=== PATIENT | female | born 1945 | race Caucasian/White ===

== ENCOUNTER 2016-11-20 08:43 | Outpatient (CLI) | payer MEDICARE, OTHER | END 2016-11-20 08:44 | disposition critical access hospital (66) | LOC: EMS 08:43 | PROVIDERS: ATTEND Surgery | DX: M25.552 Pain in left hip (principal); W11.XXXA Fall on and from ladder, initial encounter; Y92.89 Other specified places as the place of occurrence of the external cause | CPT/HCPCS: A0425; A0429 ==

== ENCOUNTER 2016-11-20 09:02 | Emergency (ER) | payer MEDICARE, OTHER ==
[2016-11-20] MEDS ORDERED: ACETAMINOPHEN 1,000 MG/100 ML 100 ML IV STA (09:39)
[2016-11-20] MEDS ORDERED: oxyCOD/ACETAMIN 5 MG/325 MG TABLET PO STA ×2 (09:39→12:53)
[2016-11-20] MEDS ORDERED: oxyCOD/ACETAMIN 5 MG/325 MG TABLET PO ONE ×2 (09:46→13:06)
--- NOTE | 2016-11-20 09:53 | ED Physician Documentation ---
History of Present Illness - Stated complaint Stated Complaint: FALL - Chief complaint Chief Complaint: Trauma Ch/Bk - Additonal information Additional information: hx from pt fell off ladder in motor home and landed on L hip pain to L SI region and lateral L femur and knee no head neck chest abd trauma no blood thinners at [employer] berries and coffee about 830 Review of Systems Constitutional: denies: Fever, Chills Cardiac: denies: Chest pain / pressure GI: denies: Abdominal Pain Musculoskeletal: reports: Back pain (SI region), Extremity pain Neurologic: denies: Generalized weakness, Focal weakness Endocrine: denies: Easy bruising / bleeding Immunocompromised: denies: Immunocompromised PD PAST MEDICAL HISTORY - Past Medical History Cardiovascular: None Neuro: None Endocrine/Autoimmune: HyPOthyroidism GI: GERD, Cholelithiasis 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 : None HEENT: None Psych: None Musculoskeletal: None Derm: None - Past Surgical History Past Surgical History: Yes /TUCK POINTER HELPER: Dilation and currettage - Present Medications Home Medications: Ambulatory Orders Medication Instructions Recorded Confirmed Levothyroxine [Synthroid] 1 tab PO DAILY 11/20/16 11/20/16 oxyCODONE [Roxicodone] 5 mg PO Q6H PRN #12 tablet 11/20/16 - Allergies Allergies/Adverse Reactions: Allergies Allergy/AdvReac Type Severity Reaction Status Date / Time No Known Drug Allergies Allergy Verified 11/20/16 09:23 - Social History Does the pt smoke?: No Smoking Status: Never smoker Does the pt drink ETOH?: Yes Does the pt have substance abuse?: No - Immunizations Immunizations are current?: Yes - POLST Patient has POLST: No PD ED PE NORMAL - Vitals Vital signs reviewed: Yes - General General: Alert and oriented X 3 - HEENT HEENT: Atraumatic - Neck Neck: No bony TTP - Cardiac Cardiac: RRR - Respiratory Respiratory: No respiratory distress, Clear bilaterally - Abdomen Abdomen: Soft, Non tender - Back Back: Other (TTP L SI jt region) - Derm Derm: Normal color - Extremities Extremities: Other (initially arrive with hip flexed and int rotated then spont straightened it and can flex ext and roatate hip s pain, TTP lateral l femur and knee, able to flex and ext knee as well, MSV intact) Results - Vitals Vitals: Vital Signs - 24 hr 08/11/20/16 11/20/16 09:17 11:17 13:26 Temperature 36.4 C L Heart Rate 61 58 L 57 L Respiratory 16 16 18 Rate Blood Pressure 133/69 H 144/67 H 135/63 H O2 Saturation 99 95 97 11/20/16 15:17 Temperature Heart Rate 61 Respiratory 16 Rate Blood Pressure 128/61 O2 Saturation 96 Oxygen O2 Source Room air - Rads (name of study) pelvis Radiology: See rad report (neg) femur Radiology: See rad report (neg) knee Radiology: See rad report (lateral tibial plateua fx with blood fat level) CT knee Radiology: See rad report (2 X 2 X 0.9 cm avulsion central anterior medial tibial plateau c/w ACL avulsion, also mildly depressed comminuited lateral tibial plateau fx, lipohemarthrosis, consider MRI) Procedures - Splint (location) LLE Splint applied by: Tech Type of splint: Fiberglass, Long leg, Posterior Other: Patient tolerated well, No complications, Neurovascular intact, Crutches provided PD MEDICAL DECISION MAKING - ED course ED course: d/w ortho Dr Barger who rec getting CT knee for further surgical planning and splint and dc with ortho outpt fup Departure - Departure Disposition: 01 Home, Self Care Clinical Impression: Tibial plateau fracture, left Qualifiers: Encounter type: initial encounter Fracture type: closed Qualified Code(s): S82.142A - Displaced bicondylar fracture of left tibia, initial encounter for closed fracture ACL (anterior cruciate ligament) rupture Qualifiers: Encounter type: initial encounter Laterality: left Qualified Code(s): S83.512A - Sprain of anterior cruciate ligament of left knee, initial encounter Condition: Good Instructions: ED Splint Care Fiberglass, ED Crutch Walking, ED Fx Knee, ED Knee Injury Cruciate Ligament Follow-Up: [facility] [Provider Group] Prescriptions: oxyCODONE [Roxicodone] 5 mg PO Q6H PRN #12 tablet PRN Reason: Severe Pain Comments: Wear the splint at all times Elevate and ice to decrease the swelling Take tylenol for mild pain and oxycodone for severe pain. Follow up with our orthopedics group before staring your road trip home I am worried about the risk for blood clots on your road trip - the injury plus being in a splint plus driving long stances are all risk factors. It might be best to have you take a blood thinner (such as lovenox coumadin or xarelto) while you are driving. But this decision would need to be made in conjunction with your surigxal planning So please discuss with orthopedics at your follow up appointment Discharge Date/Time: 11/20/16 15:45
[2016-11-20] MEDS ORDERED: ACETAMINOPHEN 1,000 MG/100 ML 100 ML IV ONE (10:05)
--- NOTE | 2016-11-20 11:19 | XRAY Preliminary Report ---
Exam: XR Pelvis 3 View IMPRESSION: No evidence of fracture or dislocation. [facility] SITE ID: [id number]
--- NOTE | 2016-11-20 11:21 | XRAY Preliminary Report ---
Exam: XR Knee 4 View LT IMPRESSION: Lateral tibial plateau fracture, likely joint depression type. No evidence of dislocation . There is a joint effusion with a fat/fluid level. [facility] SITE ID: [id number]
--- NOTE | 2016-11-20 11:21 | XRAY Report ---
EXAM: PELVIS RADIOGRAPHY EXAM DATE: 11/20/2016 10:57 AM. CLINICAL HISTORY: Fall COMPARISON: None. TECHNIQUE: 3 views. FINDINGS: Bones: No fracture or focal bony lesion. Joints: No evidence of dislocation. Soft Tissues: No unexpected soft tissue findings. IMPRESSION: No evidence of fracture or dislocation. [facility] Referring Provider Line: [phone] SITE ID: [id number]
--- NOTE | 2016-11-20 11:23 | XRAY Report ---
EXAM: RIGHT/LEFT KNEE RADIOGRAPHY EXAM DATE: 11/20/2016 10:56 AM. CLINICAL HISTORY: Fall, lateral knee pain. TECHNIQUE: 4 views. FINDINGS: Bones: There is lateral tibial plateau fracture, likely joint depression type. Joints: No evidence of dislocation. There is a joint effusion with a fat/fluid level. Soft Tissues: No unexpected soft tissue findings. IMPRESSION: Lateral tibial plateau fracture, likely joint depression type. No evidence of dislocation . There is a joint effusion with a fat/fluid level. [facility] Referring Provider Line: [phone] SITE ID: [id number]
--- NOTE | 2016-11-20 11:23 | XRAY Preliminary Report ---
Exam: XR Femur 2V LT IMPRESSION: No evidence of fracture or dislocation. Findings within the knee are detailed separately. [facility] SITE ID: [id number]
--- NOTE | 2016-11-20 11:26 | XRAY Report ---
EXAM: LEFT FEMUR RADIOGRAPHY EXAM DATE: 11/20/2016 10:56 AM. CLINICAL HISTORY: Fall, lateral distal L femur pain. COMPARISON: None. TECHNIQUE: 2 views. FINDINGS: Bones: Normal. No fracture or bone lesion. Joints: No evidence of dislocation. Soft Tissues: Normal. No soft tissue swelling. IMPRESSION: No evidence of fracture or dislocation. Findings within the knee are detailed separately. [facility] Referring Provider Line: [phone] SITE ID: [id number]
--- NOTE | 2016-11-20 14:16 | CT Report ---
EXAM: LEFT KNEE CT WITHOUT CONTRAST EXAM DATE: 11/20/2016 01:42 PM. CLINICAL HISTORY: Tibial plateau fracture. COMPARISON: Left knee radiography from 11/20/2016. TECHNIQUE: Thin-section axial images were acquired of the knee without contrast. Post-processing: Cor onal and sagittal reformats. Other: None. In accordance with CT protocol optimization, one or more of the following dose reduction techniques w ere utilized for this exam: automated exposure control, adjustment of mA and/or KV based on patient s ize, or use of iterative reconstructive technique. FINDINGS: Bones: There is an approximately 2 cm medial to lateral by 2 cm AP by 0.9 cm craniocaudal mildly dist racted avulsion fracture at the central to anterior median aspect of the tibial plateau. The fracture is distracted by approximately 4 mm. The avulsion fracture fragment is at the expected location of t he tibial attachment site of the anterior cruciate ligament. There is a mildly depressed and comminut ed fracture at the posterior margin of the lateral tibial plateau. No fracture is depressed by approx imately 4 mm. No bone lesions. Joints: No dislocation. Lipohemarthrosis is present. Musculature: Normal. No fatty atrophy. Other: No Bakers cyst. No soft tissue swelling. IMPRESSION: 1. An approximately 2 x 2 x 0.9 cm mildly distracted avulsion fracture at the central to anterior med johnathan aspect of the tibial plateau. This is at the expected location of the tibial attachment site of t he anterior cruciate ligament. 2. Mildly depressed and comminuted fracture of the posterior margin of the lateral tibial plateau. 3. Lipohemarthrosis. 4. Consider a follow-up left knee MRI to evaluate for internal derangement. [facility] Referring Provider Line: [phone] SITE ID: [id number]
[2016-11-20 15:19] VITALS: BP 128/61
== END 2016-11-20 15:45 | disposition home or self-care (01) ==
LOC: ED 09:02
DX: S82.142A Displaced bicondylar fracture of left tibia, initial encounter for closed fracture (principal); S83.512A Sprain of anterior cruciate ligament of left knee, initial encounter; W11.XXXA Fall on and from ladder, initial encounter; Y92.89 Other specified places as the place of occurrence of the external cause
CPT/HCPCS: 29505; 72190; 73552; 73564; 73700; 99284; A9270; J0131